=== PATIENT | female | born 1945 ===

== ENCOUNTER 2017-10-02 03:46 | Emergency (ER) | payer MEDICARE, BC ==
[~2017-10-02] VITALS: Ht 165.1 cm; Wt 77.1 kg
[2017-10-02] MEDS ORDERED: GABA-534 PO (04:24)
[2017-10-02] MEDS ORDERED: PIOG15TA8 PO (04:24)
[2017-10-02] MEDS ORDERED: METF10004 PO (04:24)
[2017-10-02] MEDS ORDERED: SIMV20TA6 PO (04:24)
[2017-10-02] MEDS ORDERED: FENO134C PO (04:24)
[2017-10-02] MEDS ORDERED: LOSA1TAB36 PO (04:24)
[2017-10-02] MEDS ORDERED: NAPR-1009 PO (04:24)
--- NOTE | 2017-10-02 04:30 | NUR ---
DR. FARIAS AT BEDSIDE FOR MSE.
[2017-10-02] MEDS ORDERED: METOCLOPRAMIDE HCL 10 MG/2 ML VIAL ONE (04:43)
[2017-10-02] MEDS ORDERED: KETOROLAC TROMETHAMINE 15 MG INJ ONE (04:43)
[2017-10-02] MEDS ORDERED: KETOROLAC TROMETHAMINE 15 MG INJ IV ONE (04:45)
[2017-10-02] MEDS ORDERED: IV NORMAL SALINE 1000 ML BAG IV ONE (04:45)
[2017-10-02] MEDS ORDERED: METOCLOPRAMIDE HCL 10 MG/2 ML VIAL IV ONE (04:45)
[2017-10-02 05:00] LABS: BASOPHILS % (AUTO) 0.5 % (0.0-2.0); EOSINOPHILS # (AUTO) 0.2 K/uL (0.0-0.7); EOSINOPHILS % (AUTO) 3.2 % (0.0-7.0); HEMATOCRIT 34.2 % (31.2-41.9); HEMOGLOBIN 11.3 g/dL (10.9-14.3); LYMPHOCYTES # (AUTO) 2.3 K/uL (20.0-40.0); LYMPHOCYTES % (AUTO) 30.3 % (20.5-51.5); MEAN CORPUSCULAR HEMOGLOBIN 28.2 uug (24.7-32.8); MEAN CORPUSCULAR HGB CONC 33 g/dL (32.3-35.6); MEAN CORPUSCULAR VOLUME 85.1 fL (75.5-95.3); MONOCYTES # (AUTO) 0.6 K/uL (2.0-10.0); MONOCYTES % (AUTO) 8.4 % (0.0-11.0); NEUTROPHILS # (AUTO) 4.3 K/uL (1.8-8.9); NEUTROPHILS % (AUTO) 57.6 % (38.5-71.5); PLATELET COUNT (AUTO) 204 K/uL (179-408); RED BLOOD CELL COUNT(AUTO) 4.02 MIL/uL (3.63-4.92); WHITE BLOOD COUNT (AUTO) 7.5 K/uL (3.8-11.8)
[2017-10-02 05:04] LABS: CARBON DIOXIDE 25 mmol/L (21-32); CHLORIDE 105 mmol/L (98-107); CREATININE 1.1 mg/dL (0.6-1.3); GLUCOSE 164 mg/dL (74-106); POTASSIUM 4.2 mmol/L (3.5-5.1); UREA NITROGEN, BLOOD 25 mg/dL (7-18)
--- NOTE | 2017-10-02 05:07 | NUR ---
PT WENT DOWN FOR CT SCAN
[2017-10-02 05:11] LABS: ALANINE AMINOTRANSFERASE 152 U/L (14-59); ALKALINE PHOSPHATASE 149 U/L (50-136); ASPARTATE AMINOTRANSFERASE 361 U/L (15-37); BILIRUBIN,DIRECT 0.3 mg/dL (0.0-0.2); BILIRUBIN,TOTAL 0.7 mg/dL (0.2-1.0); LIPASE 461 U/L (73-393)
[2017-10-02 05:11] LABS: *BILIRUBIN,URIN NEGATIVE (NEGATIVE); *BLOOD, URINE NEGATIVE (NEGATIVE); *CLARITY,URINE CLEAR (CLEAR); *COLOR,URINE LIGHT YELLOW (YELLOW); *KETONES,URINE NEGATIVE (NEGATIVE); *PROTEIN,URINE NEGATIVE (NEGATIVE); *UROBILINOGEN,URINE 0.2 E.U./dl (NORMAL); LEUKOCYTE ESTERASE ,URINE 1+ (NEGATIVE); NITRITE, URINE NEGATIVE (NEGATIVE); UGLUCOSE NEGATIVE (NEGATIVE)
[2017-10-02 05:21] LABS: RBC,URINE 0-3 /HPF (0-3)
[2017-10-02 05:22] LABS: BACTERIA,URINE NONE SEEN /HPF (NONE SEEN); SQUAMOUS EPITHELIAL CELL,UR FEW /HPF (NONE SEEN)
--- NOTE | 2017-10-02 05:47 | NUR ---
Patient discharged to home in stable conditon. Written and verbal after care instructions given. Patient verbalizes understanding of instructions. Pt denies any abdominal pain. Pt states medication helped the pain. Pt left ER and walks in steady gait. Pt is accompanied by son and son's .
[2017-10-02 05:49] VITALS: BP 141/76
== END 2017-10-02 05:50 | disposition home or self-care (01) ==
LOC: ER 03:46
DX: K85.90 Acute pancreatitis without necrosis or infection, unspecified (principal); K80.20 Calculus of gallbladder without cholecystitis without obstruction; K72.00 Acute and subacute hepatic failure without coma; I10 Essential (primary) hypertension; E78.5 Hyperlipidemia, unspecified; E11.9 Type 2 diabetes mellitus without complications; Z79.84 Long term (current) use of oral hypoglycemic drugs; Z79.1 Long term (current) use of non-steroidal anti-inflammatories (NSAID); Z79.899 Other long term (current) drug therapy
CPT/HCPCS: 36415; 71045; 74176; 80048; 80076; 81001; 83605; 83690; 84484; 85025; 85730; 87040 ×2; 93005; 96361; 96374; 96375; 99285; A4663; J1885; J2765; J7030; 70030-TC